=== PATIENT | male | born 1955 | race Caucasian/White ===

== ENCOUNTER 2022-12-25 14:58 | Emergency (ER) | payer OTHER ==
[~2022-12-25] VITALS: Ht 167.6 cm; Wt 68.0 kg
[2022-12-25] MEDS ORDERED: ACETAMINOPHEN 325 MG TABLET ONE (15:47)
[2022-12-25] MEDS ORDERED: IBUPROFEN 600 MG TABLET ONE (15:47)
[2022-12-25] MEDS: IBUPROFEN 600 MG TABLET PO ONE (15:50)
[2022-12-25] MEDS: ACETAMINOPHEN 325 MG TABLET PO ONE (15:50)
[2022-12-25] MEDS ORDERED: IBUP-1955 PO (17:09)
[2022-12-25 18:11] VITALS: BP 131/72; TEMP 98.2; O2SAT 100
== END 2022-12-25 18:11 | disposition home or self-care (01) ==
LOC: ER 15:17
DX: S92.354A Nondisplaced fracture of fifth metatarsal bone, right foot, initial encounter for closed fracture (principal); Z79.899 Other long term (current) drug therapy; X50.1XXA Overexertion from prolonged static or awkward postures, initial encounter; Y93.89 Activity, other specified; Y92.89 Other specified places as the place of occurrence of the external cause; Y99.8 Other external cause status
CPT/HCPCS: 73610-TC; 73630-TC